=== PATIENT | male | born 1965 | race Caucasian/White ===

== ENCOUNTER → 2021-05-10 08:17 | Outpatient (CLI) | payer BC, SELFPAY ==
--- NOTE | ~2021-05-10 | MR_ITS ---
EXAMINATION: MR lumbar spine wo con DATE: 05/10/2021 09:03 INDICATION: Lumbar radiculopathy. Chronic left-sided low back pain. TECHNIQUE: Magnetic resonance imaging (MRI) of the lumbar spine was performed without intravenous con trast. Sequences included sagittal T2-weighted FSE, sagittal T2-weighted FS FSE, sagittal T1-weighted FSE, and axial T2-weighted FSE. COMPARISON: Lumbar spine MRI 12/24/16 FINDINGS: There is 5 degrees dextrocurvature of lower lumbar spine. There are chronic compression fra ctures of T11-L2. There is severely decreased disc height at T12-L1, mildly decreased disc height at L1-L2 and L2-L3, moderately decreased disc height at L3-L4, and severely decreased disc height at L4- L5 and L5-S1 with endplate remodeling. There is ligamentum flavum hypertrophy at the disc levels from L1-L2 through L4-L5. The distal spinal cord signal intensity is normal. The conus medullaris is at L 1. The following disc levels are specifically discussed: L1-L2: The disc is mildly bulging. There is severe bilateral facet joint osteoarthritis. There is mil d bilateral neural foraminal stenosis. There is mild central canal stenosis. L2-L3: The disc is bulging and has an annular fissure. There is severe bilateral facet joint osteoart hritis. There is mild bilateral neural foraminal stenosis. There is mild central canal stenosis. L3-L4: The disc is bulging with left subarticular zone extrusion with mass effect on left L4 nerve ro ot in left lateral recess. There is severe bilateral facet joint osteoarthritis. There is mild bilate ral neural foraminal stenosis. There is mild central canal stenosis. There is severe stenosis of left lateral recess. L4-L5: The disc is bulging and has an annular fissure. There is severe bilateral facet joint osteoart hritis. There is mild right and moderate left neural foraminal stenosis. There is mild central canal stenosis. L5-S1: The disc is bulging and has an annular fissure. There is moderate bilateral facet joint osteoa rthritis. There is moderate bilateral neural foraminal stenosis. There is mild central canal stenosis . IMPRESSION: 1. Severe lumbar spondylosis, worsened at L3-L4. Reviewed, dictated and finalized at location A. [employer]
== END ==
PROVIDERS: Visit Provider Anesthesiology
DX: M47.26 Other spondylosis with radiculopathy, lumbar region (principal)
CPT/HCPCS: 72148